=== PATIENT | female | born 1945 | race Caucasian/White ===

== ENCOUNTER 2020-10-16 09:35 | Inpatient (IN) | payer MEDICARE, OTHER ==
[2020-10-16] MEDS ORDERED: MORPHINE 4 MG/1 ML INJ IV ONE (10:15)
[2020-10-16] MEDS ORDERED: ONDANSETRON 4 MG/2 ML INJ IV ONE (10:15)
--- NOTE | 2020-10-16 10:20 | Emergency Department Report ---
HPI - General Chief Complaint: Back Pain/Injury Time Seen by Provider: 10/16/20 10:01 - HPI HPI: This is a 75-year-old female who presents to the emergency department via EMS from home with complaint of low back pain that has been going on over the past 2 weeks and getting progressively worse. The patient was seen in the [facility] emergency department last night and was diagnosed with kidney stones and discharged home on Keflex and Toradol. The patient's pain continued this morning and so the patient came in to the emergency department for further evaluation. She has a past medical history of diabetes and hypertension. The patient's pain is currently 9 out of 10 in intensity and worsens with any type of movement. The patient previously was ambulatory but at this time is unable to bear weight or ambulate secondary to increased pain. The patient also says that the pain will sometimes radiate down towards the hips and legs when she is moving. The pain is worst on the right side of the lower back but sometimes she feels it also in the left lower back. She denies any fever, dysuria, urinary retention, diarrhea, constipation, vaginal bleeding or discharge. She follows with [facility] for primary care. ED Past Medical Hx - Past Medical History Previous Medical History?: Yes Hx Hypertension: Yes Hx Diabetes: Yes - Surgical History Past Surgical History?: Yes - Social History Smoking Status: Former Smoker Substance Use Type: None ED Review of Systems ROS: Stated complaint: RT SIDE FLANK PAIN/KIDNEY STONES Other details as noted in HPI Comment: All other systems reviewed and negative Constitutional: denies: chills, fever Eyes: denies: eye pain, vision change ENT: denies: ear pain, throat pain Respiratory: denies: cough, shortness of breath Cardiovascular: denies: chest pain, palpitations Gastrointestinal: denies: abdominal pain, vomiting Genitourinary: denies: dysuria, discharge Musculoskeletal: back pain, myalgia Skin: denies: rash, lesions Neurological: denies: numbness, paresthesias Physical Exam - Physical Exam Vital Signs: Vital Signs 10/16/20 10/16/20 09:41 09:59 Temperature 97.8 F Pulse Rate 80 Respiratory 18 18 Rate Blood Pressure 184/77 O2 Sat by Pulse 95 95 Oximetry Physical Exam: GENERAL: The patient is well-developed well-nourished. HENT: Normocephalic. Atraumatic. Patient has moist mucous membranes. EYES: Extraocular motions are intact. NECK: Supple. Trachea is midline. CHEST/LUNGS: Clear to auscultation. There is no respiratory distress noted. HEART/CARDIOVASCULAR: Regular. There is no tachycardia. There is no murmur. ABDOMEN: Abdomen is soft, nontender. Patient has normal bowel sounds. There is no abdominal distention. SKIN: Skin is warm and dry. NEURO: The patient is awake, alert, and oriented. The patient is cooperative. The patient has no focal neurologic deficits. Normal speech. MUSCULOSKELETAL: There is no tenderness or deformity. There is no limitation range of motion. BACK: No midline thoracic or lumbar tenderness to palpation. There is some reproducible bilateral lumbar paraspinal tenderness to palpation. ED Course Vital Signs 10/16/20 10/16/20 09:41 09:59 Temperature 97.8 F Pulse Rate 80 Respiratory 18 18 Rate Blood Pressure 184/77 O2 Sat by Pulse 95 95 Oximetry ED Medical Decision Making - Lab Data Result diagrams: 10/16/20 10:21 10/16/20 10:21 Lab Results 10/16/20 10/16/20 10/16/20 Range/Units 09:51 10:21 10:21 WBC 8.6 (4.5-11.0) K/mm3 RBC 4.94 (3.65-5.03) M/mm3 Hgb 15.4 H (10.1-14.3) gm/dl Hct 45.4 H (30.3-42.9) % MCV 92 (79-97) fl MCH 31 (28-32) pg MCHC 34 (30-34) % RDW 12.6 L (13.2-15.2) % Plt Count 327 (140-440) K/mm3 Lymph % (Auto) 17.4 (13.4-35.0) % [place] % (Auto) 3.8 (0.0-7.3) % Eos % (Auto) 0.6 (0.0-4.3) % Baso % (Auto) 0.8 (0.0-1.8) % Lymph # (Auto) 1.5 (1.2-5.4) K/mm3 [place] # (Auto) 0.3 (0.0-0.8) K/mm3 Eos # (Auto) 0.0 (0.0-0.4) K/mm3 Baso # (Auto) 0.1 (0.0-0.1) K/mm3 Seg Neutrophils % 77.4 H (40.0-70.0) % Seg Neutrophils # 6.6 (1.8-7.7) K/mm3 Sodium 137 (137-145) mmol/L Potassium 4.1 (3.6-5.0) mmol/L Chloride 100.6 (98-107) mmol/L Carbon Dioxide 27 (22-30) mmol/L Anion Gap 14 mmol/L BUN 26 H (7-17) mg/dL Creatinine 0.9 (0.6-1.2) mg/dL Estimated GFR > 60 ml/min BUN/Creatinine Ratio 29 % Glucose 267 H (65-100) mg/dL POC Glucose 254 H (70-105) mg/dL Calcium 9.1 (8.4-10.2) mg/dL Total Bilirubin 0.40 (0.1-1.2) mg/dL AST 19 (5-40) units/L ALT 18 (7-56) units/L Alkaline Phosphatase 89 (35-129) units/L Total Protein 7.1 (6.3-8.2) g/dL Albumin 3.7 L (3.9-5) g/dL Albumin/Globulin Ratio 1.1 % Urine Color (Yellow) Urine Turbidity (Clear) Urine pH (5.0-7.0) Ur Specific [place] (1.003-1.030) Urine Protein (Negative) mg/dL Urine Glucose (UA) (Negative) mg/dL Urine Ketones (Negative) mg/dL Urine Blood (Negative) Urine Nitrite (Negative) Urine Bilirubin (Negative) Urine Urobilinogen (<2.0) mg/dL Ur Leukocyte Esterase (Negative) Urine WBC (Auto) (0.0-6.0) /HPF Urine RBC (Auto) (0.0-6.0) /HPF U Epithel Cells (Auto) (0-13.0) /HPF 10/16/20 Range/Units 10:45 WBC (4.5-11.0) K/mm3 RBC (3.65-5.03) M/mm3 Hgb (10.1-14.3) gm/dl Hct (30.3-42.9) % MCV (79-97) fl MCH (28-32) pg MCHC (30-34) % RDW (13.2-15.2) % Plt Count (140-440) K/mm3 Lymph % (Auto) (13.4-35.0) % [place] % (Auto) (0.0-7.3) % Eos % (Auto) (0.0-4.3) % Baso % (Auto) (0.0-1.8) % Lymph # (Auto) (1.2-5.4) K/mm3 [place] # (Auto) (0.0-0.8) K/mm3 Eos # (Auto) (0.0-0.4) K/mm3 Baso # (Auto) (0.0-0.1) K/mm3 Seg Neutrophils % (40.0-70.0) % Seg Neutrophils # (1.8-7.7) K/mm3 Sodium (137-145) mmol/L Potassium (3.6-5.0) mmol/L Chloride (98-107) mmol/L Carbon Dioxide (22-30) mmol/L Anion Gap mmol/L BUN (7-17) mg/dL Creatinine (0.6-1.2) mg/dL Estimated GFR ml/min BUN/Creatinine Ratio % Glucose (65-100) mg/dL POC Glucose (70-105) mg/dL Calcium (8.4-10.2) mg/dL Total Bilirubin (0.1-1.2) mg/dL AST (5-40) units/L ALT (7-56) units/L Alkaline Phosphatase (35-129) units/L Total Protein (6.3-8.2) g/dL Albumin (3.9-5) g/dL Albumin/Globulin Ratio % Urine Color Yellow (Yellow) Urine Turbidity Clear (Clear) Urine pH 7.0 (5.0-7.0) Ur Specific [place] 1.007 (1.003-1.030) Urine Protein 30 mg/dl (Negative) mg/dL Urine Glucose (UA) >=500 (Negative) mg/dL Urine Ketones Neg (Negative) mg/dL Urine Blood Neg (Negative) Urine Nitrite Neg (Negative) Urine Bilirubin Neg (Negative) Urine Urobilinogen < 2.0 (<2.0) mg/dL Ur Leukocyte Esterase Neg (Negative) Urine WBC (Auto) 1.0 (0.0-6.0) /HPF Urine RBC (Auto) < 1.0 (0.0-6.0) /HPF U Epithel Cells (Auto) < 1.0 (0-13.0) /HPF - Radiology Data Radiology results: report reviewed CT ABDOMEN AND PELVIS WITH IV CONTRAST INDICATION: Flank pain for 2 weeks. COMPARISON: None available. TECHNIQUE: All CT scans at this facility use dose modulation, automated exposure control, iterative reconstruction or weight based dosing, when appropriate, to reduce radiation dose to as low as reasonably ac hievable. FINDINGS: Lung Bases: There are atelectatic changes in the dependent lung bases. Skeletal System: No acute abnormality. ABDOMEN: Liver: No significant abnormality. Gallbladder: No significant abnormality. Bile Ducts: No significant abnormality. Pancreas: No significant abnormality. Spleen: No significant abnormality. Adrenals: No significant abnormality. Right Kidney: There are couple punctate cysts. No acute finding. Left Kidney: There is a punctate exophytic upper pole cyst. There are couple nonobstructing calyceal stones. No hydronephrosis or ureteral stone. Upper GI tract: No significant abnormality. Lymph Nodes: No significant adenopathy. Aorta: Advanced atherosclerotic calcification. Additional Findings: No significant abnormality. PELVIS: Colon: No acute abnormality. Urinary Bladder and Distal Ureters: No significant abnormality. Appendix: Not visualized. Lymph Nodes: No significant adenopathy. Additional Findings: There is advanced atherosclerotic calcification at the bilateral iliac arterial trees. IMPRESSION: 1. No acute process in the abdomen or pelvis. 2. Incidental findings, as above. CT LUMBAR SPINE WITHOUT CONTRAST INDICATION: Back pain for 2 weeks. TECHNIQUE: Axial CT images of the spine were obtained. Sagittal and coronal reformatted images were produced. All CT scans at this location are performed using CT dose reduction for ALARA by means of automated exposure control. COMPARISON: None available. FINDINGS: ACUTE FRACTURE(S) OR SUBLUXATION: No acute fracture is seen. There is diffuse height loss at the L4 vertebral body which does not appear acute. SPINAL DEGENERATIVE CHANGES: There is diffuse spondylosis with moderate discogenic degenerative change and moderate to advanced facet arthropathy. Broad-based disc bulges are noted in the mid to lower lumbar spine. PARASPINAL SOFT TISSUES: No soft tissue swelling or other acute abnormalities. ADDITIONAL FINDINGS: There is bilateral spondylolysis at L5 with associated grade 1 anterolisthesis of L5 on S1. IMPRESSION: 1. No acute fracture or subluxation in the spine in neutral position. 2. Spondylitic changes as above. - Medical Decision Making This patient presents to the emergency department with a complaint of a 2-week history of progressively worsening low back pain. Sometimes this pain will radiate down to the hips and buttocks. The pain worsens with any type of movement and it is gotten to the point where the patient has difficulty standing up, bearing weight and ambulating due to the pain. On examination she does not have any midline thoracic or lumbar tenderness to palpation. There is some reproducible lumbar paraspinal tenderness to palpation but overall the patient says that the palpation is not eliciting the same type of pain that she is experiencing. The patient had increased pain when we rolled her to do the back examination. A Briscoe catheter was placed to get a urine specimen because the patient has too much pain in order to use a bedpan or get to the restroom. The catheter was not placed secondary to urinary retention. Labs have been mostly unremarkable including CBC, metabolic panel and urinalysis. There is some hyperglycemia with a blood sugar of about 260, but there is no elevated anion gap and therefore low suspicion for diabetic ketoacidosis. The patient was given 2 different doses of IV analgesia with some transient improvement. CT scan of the abdomen pelvis did not show any acute process. CT scan of the lumbar spine shows some spondylitic changes. There is degenerative disc disease and multiple areas of disc bulging. As the patient is unable to do her ADLs secondary to her continued discomfort, she will be admitted to the hospital for further evaluation and treatment. The patient was accepted for admission by the hospitalist, Dr. Pickens. Critical Care Time: No Critical care attestation.: If time is entered above; I have spent that time in minutes in the direct care of this critically ill patient, excluding procedure time. ED Disposition Clinical Impression: Intractable back pain, Unable to ambulate Hypertension Qualifiers: Hypertension type: essential hypertension Qualified Code(s): I10 - Essential (primary) hypertension Disposition: OP ADMIT IP TO THIS HOSP Is pt being admited?: Yes Condition: Serious Time of Disposition: 12:52
[2020-10-16 10:42] LABS: Basophils # (Auto) 0.1 K/mm3 (0.0-0.1); Basophils % (Auto) 0.8 % (0.0-1.8); Eosinophils % (Auto) 0.6 % (0.0-4.3); Hematocrit 45.4 % (30.3-42.9); Hemoglobin 15.4 gm/dl (10.1-14.3); Lymphocytes # (Auto) 1.5 K/mm3 (1.2-5.4); Lymphocytes % (Auto) 17.4 % (13.4-35.0); Mean Corpuscular HGB Conc 34 % (30-34); Mean Corpuscular Volume 92 fl (79-97); Monocytes # (Auto) 0.3 K/mm3 (0.0-0.8); Monocytes % (Auto) 3.8 % (0.0-7.3); Platelet Count 327 K/mm3 (140-440); Red Blood Count 4.94 M/mm3 (3.65-5.03); Red Cell Distribution Width 12.6 % (13.2-15.2)
[2020-10-16 10:57] LABS: Alanine Aminotransferase 18 units/L (7-56); Albumin 3.7 g/dL (3.9-5); BUN/Creatinine Ratio 29; Blood Urea Nitrogen 26 mg/dL (7-17); Calcium 9.1 mg/dL (8.4-10.2); Hemolysis Index 7
[2020-10-16 11:04] LABS: Bilirubin,Urine NEG (Negative); Blood,Urine NEG (Negative); Color,Urine Yellow (Yellow); RBC,Urine < 1.0 /HPF (0.0-6.0); Urobilinogen,Urine < 2.0 mg/dL (<2.0)
[2020-10-16] MEDS ORDERED: HYDROmorphone 1 MG/1 ML INJ IV ONE (12:28)
--- NOTE | 2020-10-16 12:38 | Cat Scan Report ---
CT LUMBAR SPINE WITHOUT CONTRAST INDICATION: Back pain for 2 weeks. TECHNIQUE: Axial CT images of the spine were obtained. Sagittal and coronal reformatted images were produced. Al l CT scans at this location are performed using CT dose reduction for ALARA by means of automated exp osure control. COMPARISON: None available. FINDINGS: ACUTE FRACTURE(S) OR SUBLUXATION: No acute fracture is seen. There is diffuse height loss at the L4 v ertebral body which does not appear acute. SPINAL DEGENERATIVE CHANGES: There is diffuse spondylosis with moderate discogenic degenerative yung e and moderate to advanced facet arthropathy. Broad-based disc bulges are noted in the mid to lower l umbar spine. PARASPINAL SOFT TISSUES: No soft tissue swelling or other acute abnormalities. ADDITIONAL FINDINGS: There is bilateral spondylolysis at L5 with associated grade 1 anterolisthesis o f L5 on S1. IMPRESSION: 1. No acute fracture or subluxation in the spine in neutral position. 2. Spondylitic changes as above. Signer Name: Nando Elise MD Signed: 10/16/2020 12:34 PM Workstation Name: [id number]
--- NOTE | 2020-10-16 12:42 | Cat Scan Report ---
CT ABDOMEN AND PELVIS WITH IV CONTRAST INDICATION: Flank pain for 2 weeks. COMPARISON: None available. TECHNIQUE: All CT scans at this facility use dose modulation, automated exposure control, iterative reconstructi on or weight based dosing, when appropriate, to reduce radiation dose to as low as reasonably achieva ble. FINDINGS: Lung Bases: There are atelectatic changes in the dependent lung bases. Skeletal System: No acute abnormality. ABDOMEN: Liver: No significant abnormality. Gallbladder: No significant abnormality. Bile Ducts: No significant abnormality. Pancreas: No significant abnormality. Spleen: No significant abnormality. Adrenals: No significant abnormality. Right Kidney: There are couple punctate cysts. No acute finding. Left Kidney: There is a punctate exophytic upper pole cyst. There are couple nonobstructing calyceal stones. No hydronephrosis or ureteral stone. Upper GI tract: No significant abnormality. Lymph Nodes: No significant adenopathy. Aorta: Advanced atherosclerotic calcification. Additional Findings: No significant abnormality. PELVIS: Colon: No acute abnormality. Urinary Bladder and Distal Ureters: No significant abnormality. Appendix: Not visualized. Lymph Nodes: No significant adenopathy. Additional Findings: There is advanced atherosclerotic calcification at the bilateral iliac arterial trees. IMPRESSION: 1. No acute process in the abdomen or pelvis. 2. Incidental findings, as above. Signer Name: Nando Elise MD Signed: 10/16/2020 12:38 PM Workstation Name: [id number]
[2020-10-16] MEDS ORDERED: ONDANSETRON 4 MG/2 ML INJ IV PRN (20:04)
[2020-10-16] MEDS ORDERED: IBUPROFEN 600 MG TAB PO PRN (20:04)
[2020-10-16] MEDS ORDERED: ACETAMINOPHEN 325 MG TAB PO PRN (20:04)
--- NOTE | 2020-10-16 20:20 | History and Physical Report ---
History of Present Illness Date of examination: 10/16/20 Date of admission: 10/16/20 12:55 Chief complaint: Severe low back pain for 1 week History of present illness: 75-year-old female with a history of hypertension and diabetes comes in for severe low back pain radiating to the right lower extremity. Pain is about 10 on a scale of 1-10. Patient went to [place] emergency room last night and was diagnosed with renal colic and discharged Toradol and Keflex. Patient continues to have severe pain which is 10 on a scale of 1-10 sharp in nature. Movement is exacerbating. Lying down flat is relieving. Work-up in the emergency room revealed multiple disc changes spondylolysis and grade 1 and spondylolisthesis and L4 compression fracture. Patient being admitted and the neurosurgery evaluation to be requested. - Past Medical History Previous Medical History?: Yes Hx Hypertension: Yes Hx Diabetes: Yes - Surgical History Past Surgical History?: Yes - Social History Smoking Status: Former Smoker Substance Use Type: None Review of Systems ROS: Stated complaint: RT SIDE FLANK PAIN/KIDNEY STONES Other details as noted in HPI Comment: All other systems reviewed and negative Constitutional: denies: chills, fever Eyes: denies: eye pain, vision change ENT: denies: ear pain, throat pain Respiratory: denies: cough, shortness of breath Cardiovascular: denies: chest pain, palpitations Gastrointestinal: denies: abdominal pain, vomiting Genitourinary: denies: dysuria, discharge Musculoskeletal: back pain, myalgia Skin: denies: rash, lesions Neurological: denies: numbness, paresthesias Medications and Allergies Allergies Allergy/AdvReac Type Severity Reaction Status Date / Time No Known Allergies Allergy Verified 10/16/20 20:11 Home Medications Medication Instructions Recorded Confirmed Last Taken Type AtorvaSTATin [Lipitor] 40 mg PO DAILY 10/17/20 10/17/20 Unknown History Benazepril HCl 40 mg PO DAILY 10/17/20 10/17/20 Unknown History Meloxicam [Mobic] 7.5 mg PO DAILY 10/17/20 10/17/20 Unknown History Metformin HCl [metFORMIN] 1,000 mg PO DAILY 10/17/20 10/17/20 Unknown History amLODIPine 10 mg PO DAILY 10/17/20 10/17/20 Unknown History hydroCHLOROthiazide 25 mg PO DAILY 10/17/20 10/17/20 Unknown History [Hydrochlorothiazide] Active Meds: Active Medications Acetaminophen (Acetaminophen 325 Mg Tab) 650 mg PO Q4H PRN PRN Reason: Pain MILD(1-3)/Fever >100.5/BORJA Famotidine (Famotidine 20 Mg Tab) 20 mg PO BID MARION Hydromorphone HCl (Hydromorphone 1 Mg/1 Ml Inj) 0.5 mg IV Q3H PRN PRN Reason: Pain , Severe (7-10) Sodium Chloride (Nacl 0.9% 1000 Ml) 1,000 mls @ 75 mls/hr IV DIRECT MARION Ibuprofen (Ibuprofen 600 Mg Tab) 600 mg PO Q6H PRN PRN Reason: Pain, Mild (1-3) Ondansetron HCl (Ondansetron 4 Mg/2 Ml Inj) 4 mg IV Q3H PRN PRN Reason: Nausea And Vomiting Oxycodone/Acetaminophen (Oxycodone /Acetaminophen 5-325mg Tab) 1 tab PO Q6H PRN PRN Reason: Pain, Moderate (4-6) Sodium Chloride (Sodium Chloride 0.9% 10 Ml Flush Syringe) 10 ml IV BID MARION Sodium Chloride (Sodium Chloride 0.9% 10 Ml Flush Syringe) 10 ml IV PRN PRN PRN Reason: LINE FLUSH Exam - Constitutional Vitals: Temp Pulse Resp BP Pulse Ox 97.9 F 104 H 18 150/68 93 10/16/20 14:36 10/16/20 14:36 10/16/20 14:36 10/16/20 14:36 10/16/20 14:36 General appearance: Present: no acute distress, well-nourished - EENT Eyes: Present: PERRL ENT: hearing intact, clear oral mucosa - Neck Neck: Present: supple, normal ROM - Respiratory Respiratory effort: normal Respiratory: bilateral: CTA - Cardiovascular Heart rate: 78 Rhythm: regular Heart Sounds: Present: S1 & S2. Absent: rub, click - Extremities Extremities: pulses symmetrical, No edema Peripheral Pulses: within normal limits - Abdominal General gastrointestinal: Present: soft, non-tender, non-distended, normal bowel sounds Female genitourinary: Present: normal - Integumentary Integumentary: Present: clear, warm, dry - Musculoskeletal Musculoskeletal: gait normal, strength equal bilaterally - Psychiatric Psychiatric: appropriate mood/affect, intact judgment & insight - Neurologic Neurologic: CNII-XII intact, moves all extremities HEART Score - HEART Score History: Slightly suspicious Age: > 65 Risk factors: 1-2 risk factors Troponin: < normal limit - Critical Actions Critical Actions: 0-3 pts:0.9-1.7%risk of adverse cardiac event.Candidate for discharge Results - Labs CBC & Chem 7: 10/16/20 10:21 10/16/20 10:21 Labs: Laboratory Last Values WBC 8.6 K/mm3 (4.5-11.0) 10/16/20 10:21 RBC 4.94 M/mm3 (3.65-5.03) 10/16/20 10:21 Hgb 15.4 gm/dl (10.1-14.3) H 10/16/20 10:21 Hct 45.4 % (30.3-42.9) H 10/16/20 10:21 MCV 92 fl (79-97) 10/16/20 10:21 MCH 31 pg (28-32) 10/16/20 10:21 MCHC 34 % (30-34) 10/16/20 10:21 RDW 12.6 % (13.2-15.2) L 10/16/20 10:21 Plt Count 327 K/mm3 (140-440) 10/16/20 10:21 Lymph % (Auto) 17.4 % (13.4-35.0) 10/16/20 10:21 [place] % (Auto) 3.8 % (0.0-7.3) 10/16/20 10:21 Eos % (Auto) 0.6 % (0.0-4.3) 10/16/20 10:21 Baso % (Auto) 0.8 % (0.0-1.8) 10/16/20 10:21 Lymph # (Auto) 1.5 K/mm3 (1.2-5.4) 10/16/20 10:21 [place] # (Auto) 0.3 K/mm3 (0.0-0.8) 10/16/20 10:21 Eos # (Auto) 0.0 K/mm3 (0.0-0.4) 10/16/20 10:21 Baso # (Auto) 0.1 K/mm3 (0.0-0.1) 10/16/20 10:21 Seg Neutrophils % 77.4 % (40.0-70.0) H 10/16/20 10:21 Seg Neutrophils # 6.6 K/mm3 (1.8-7.7) 10/16/20 10:21 Sodium 137 mmol/L (137-145) 10/16/20 10:21 Potassium 4.1 mmol/L (3.6-5.0) 10/16/20 10:21 Chloride 100.6 mmol/L (98-107) 10/16/20 10:21 Carbon Dioxide 27 mmol/L (22-30) 10/16/20 10:21 Anion Gap 14 mmol/L 10/16/20 10:21 BUN 26 mg/dL (7-17) H 10/16/20 10:21 Creatinine 0.9 mg/dL (0.6-1.2) 10/16/20 10:21 Estimated GFR > 60 ml/min 10/16/20 10:21 BUN/Creatinine Ratio 29 % 10/16/20 10:21 Glucose 267 mg/dL (65-100) H 10/16/20 10:21 POC Glucose 254 mg/dL (70-105) H 10/16/20 09:51 Calcium 9.1 mg/dL (8.4-10.2) 10/16/20 10:21 Total Bilirubin 0.40 mg/dL (0.1-1.2) 10/16/20 10:21 AST 19 units/L (5-40) 10/16/20 10:21 ALT 18 units/L (7-56) 10/16/20 10:21 Alkaline Phosphatase 89 units/L (35-129) 10/16/20 10:21 Total Protein 7.1 g/dL (6.3-8.2) 10/16/20 10:21 Albumin 3.7 g/dL (3.9-5) L 10/16/20 10:21 Albumin/Globulin Ratio 1.1 % 10/16/20 10:21 Urine Color Yellow (Yellow) 10/16/20 10:45 Urine Turbidity Clear (Clear) 10/16/20 10:45 Urine pH 7.0 (5.0-7.0) 10/16/20 10:45 Ur Specific [place] 1.007 (1.003-1.030) 10/16/20 10:45 Urine Protein 30 mg/dl mg/dL (Negative) 10/16/20 10:45 Urine Glucose (UA) >=500 mg/dL (Negative) 10/16/20 10:45 Urine Ketones Neg mg/dL (Negative) 10/16/20 10:45 Urine Blood Neg (Negative) 10/16/20 10:45 Urine Nitrite Neg (Negative) 10/16/20 10:45 Urine Bilirubin Neg (Negative) 10/16/20 10:45 Urine Urobilinogen < 2.0 mg/dL (<2.0) 10/16/20 10:45 Ur Leukocyte Esterase Neg (Negative) 10/16/20 10:45 Urine WBC (Auto) 1.0 /HPF (0.0-6.0) 10/16/20 10:45 Urine RBC (Auto) < 1.0 /HPF (0.0-6.0) 10/16/20 10:45 U Epithel Cells (Auto) < 1.0 /HPF (0-13.0) 10/16/20 10:45 - Imaging and Cardiology CT scan - abdomen: report reviewed Imaging and Cardiology: Abdominal CAT scan IMPRESSION: 1. No acute process in the abdomen or pelvis. 2. Incidental findings, as above. L-spine CT FINDINGS: ACUTE FRACTURE(S) OR SUBLUXATION: No acute fracture is seen. Assessment and Plan Advance Directives: Yes (Full code) Plan of care discussed with patient/family: Yes - Patient Problems (1) Lumbar radiculopathy, acute Current Visit: Yes Status: Acute Plan to address problem: Pain management for now Neurosurgery consult requested May need lumbar fusion as outpatient and readmission (2) Hypertension Current Visit: Yes Status: Chronic Qualifiers: Hypertension type: essential hypertension Qualified Code(s): I10 - Essential (primary) hypertension Plan to address problem: Continue antihypertensives and adjust medications (3) T2DM (type 2 diabetes mellitus) Current Visit: Yes Status: Chronic Qualifiers: Diabetes mellitus intermission coordinator insulin use: unspecified intermediate insulin use status Plan to address problem: Check hemoglobin A1c Continue coverage (4) DVT prophylaxis Current Visit: Yes Status: Acute Plan to address problem: On heparin and GI prophylaxis
[2020-10-16] MEDS: HYDROmorphone 1 MG/1 ML INJ IV PRN (21:10)
[2020-10-16] MEDS: SODIUM CHLORIDE 0.9% 1000 ML 1,000 ML IV SCH (21:14)
[2020-10-16] MEDS: FAMOTIDINE 20 MG TAB PO SCH (21:27)
[2020-10-16] MEDS: hydrALAZINE 20 MG/1 ML INJ IV PRN (22:07)
[2020-10-17] MEDS: SODIUM CHLORIDE 0.9% 1000 ML 1,000 ML IV SCH (00:47)
[2020-10-17] MEDS: hydrALAZINE 20 MG/1 ML INJ IV PRN (04:41)
[2020-10-17] MEDS: HEPARIN 5,000 UNIT/1 ML VIAL SUB-Q SCH ×2 (09:48→22:43)
[2020-10-17] MEDS: FAMOTIDINE 20 MG TAB PO SCH ×2 (09:48→22:43)
--- NOTE | 2020-10-17 10:38 | Progress Note ---
Assessment and Plan Assessment and plan: -- Lumbar radiculopathy, acute Current Visit: Yes Status: Acute Plan to address problem: Pain management, supportive care CT lumbar spine; no acute subluxation or fracture Spondylitic changes, Supportive care MRI L-spine requested, follow the report Follow neurosurgery evaluation recommendations Physical therapy occupational therapy Rehabilitation as needed -- Hypertension Current Visit: Yes Status: Chronic Plan to address problem: Continue current antihypertensives As needed hydralazine, pain medications -- T2DM (type 2 diabetes mellitus) Current Visit: Yes Status: Chronic Plan to address problem: Accu-Chek sliding scale coverage ADA diet Insulin as needed -- DVT prophylaxis Current Visit: Yes Status: Acute Plan to address problem: On heparin and GI prophylaxis We will closely monitor the patient and adjust the management as needed Plan of care reviewed with patient and her nurse 10/17/2020; follow MRI report, follow neurosurgery evaluation and recommendations PT OT rehabilitation, discharge when medically stable History Interval history: I have seen and examined the patient at the bedside this morning Patient's chart and medications reviewed Patient was admitted with back pain of 1 week duration Hospitalist Physical - Constitutional Vitals: Temp Pulse Resp BP Pulse Ox 98.5 F 114 H 18 157/72 94 10/17/20 07:59 10/17/20 07:59 10/17/20 07:59 10/17/20 07:59 10/17/20 07:59 General appearance: Present: mild distress (Due to pain), well-nourished - EENT Eyes: Present: PERRL - Neck Neck: Present: supple, normal ROM - Respiratory Respiratory effort: normal Respiratory: bilateral: diminished, rhonchi, negative: rales, wheezing - Cardiovascular Rhythm: regular Heart Sounds: Present: S1 & S2 - Extremities Extremities: no ischemia, No edema - Abdominal General gastrointestinal: soft, non-tender, non-distended, normal bowel sounds - Integumentary Integumentary: Present: clear, warm - Psychiatric Psychiatric: appropriate mood/affect, cooperative - Neurologic Neurologic: CNII-XII intact, moves all extremities HEART Score - HEART Score Age: > 65 Risk factors: 1-2 risk factors Troponin: < normal limit - Critical Actions Critical Actions: 0-3 pts:0.9-1.7%risk of adverse cardiac event.Candidate for yamilet lewis Results - Labs CBC & Chem 7: 10/16/20 10:21 10/16/20 10:21 Labs: Laboratory Last Values WBC 8.6 K/mm3 (4.5-11.0) 10/16/20 10:21 RBC 4.94 M/mm3 (3.65-5.03) 10/16/20 10:21 Hgb 15.4 gm/dl (10.1-14.3) H 10/16/20 10:21 Hct 45.4 % (30.3-42.9) H 10/16/20 10:21 MCV 92 fl (79-97) 10/16/20 10:21 MCH 31 pg (28-32) 10/16/20 10:21 MCHC 34 % (30-34) 10/16/20 10:21 RDW 12.6 % (13.2-15.2) L 10/16/20 10:21 Plt Count 327 K/mm3 (140-440) 10/16/20 10:21 Lymph % (Auto) 17.4 % (13.4-35.0) 10/16/20 10:21 [place] % (Auto) 3.8 % (0.0-7.3) 10/16/20 10:21 Eos % (Auto) 0.6 % (0.0-4.3) 10/16/20 10:21 Baso % (Auto) 0.8 % (0.0-1.8) 10/16/20 10:21 Lymph # (Auto) 1.5 K/mm3 (1.2-5.4) 10/16/20 10:21 [place] # (Auto) 0.3 K/mm3 (0.0-0.8) 10/16/20 10:21 Eos # (Auto) 0.0 K/mm3 (0.0-0.4) 10/16/20 10:21 Baso # (Auto) 0.1 K/mm3 (0.0-0.1) 10/16/20 10:21 Seg Neutrophils % 77.4 % (40.0-70.0) H 10/16/20 10:21 Seg Neutrophils # 6.6 K/mm3 (1.8-7.7) 10/16/20 10:21 Sodium 137 mmol/L (137-145) 10/16/20 10:21 Potassium 4.1 mmol/L (3.6-5.0) 10/16/20 10:21 Chloride 100.6 mmol/L (98-107) 10/16/20 10:21 Carbon Dioxide 27 mmol/L (22-30) 10/16/20 10:21 Anion Gap 14 mmol/L 10/16/20 10:21 BUN 26 mg/dL (7-17) H 10/16/20 10:21 Creatinine 0.9 mg/dL (0.6-1.2) 10/16/20 10:21 Estimated GFR > 60 ml/min 10/16/20 10:21 BUN/Creatinine Ratio 29 % 10/16/20 10:21 Glucose 267 mg/dL (65-100) H 10/16/20 10:21 POC Glucose 297 mg/dL (70-105) H 10/17/20 08:38 Calcium 9.1 mg/dL (8.4-10.2) 10/16/20 10:21 Total Bilirubin 0.40 mg/dL (0.1-1.2) 10/16/20 10:21 AST 19 units/L (5-40) 10/16/20 10:21 ALT 18 units/L (7-56) 10/16/20 10:21 Alkaline Phosphatase 89 units/L (35-129) 10/16/20 10:21 Total Protein 7.1 g/dL (6.3-8.2) 10/16/20 10:21 Albumin 3.7 g/dL (3.9-5) L 10/16/20 10:21 Albumin/Globulin Ratio 1.1 % 10/16/20 10:21 Urine Color Yellow (Yellow) 10/16/20 10:45 Urine Turbidity Clear (Clear) 10/16/20 10:45 Urine pH 7.0 (5.0-7.0) 10/16/20 10:45 Ur Specific [place] 1.007 (1.003-1.030) 10/16/20 10:45 Urine Protein 30 mg/dl mg/dL (Negative) 10/16/20 10:45 Urine Glucose (UA) >=500 mg/dL (Negative) 10/16/20 10:45 Urine Ketones Neg mg/dL (Negative) 10/16/20 10:45 Urine Blood Neg (Negative) 10/16/20 10:45 Urine Nitrite Neg (Negative) 10/16/20 10:45 Urine Bilirubin Neg (Negative) 10/16/20 10:45 Urine Urobilinogen < 2.0 mg/dL (<2.0) 10/16/20 10:45 Ur Leukocyte Esterase Neg (Negative) 10/16/20 10:45 Urine WBC (Auto) 1.0 /HPF (0.0-6.0) 10/16/20 10:45 Urine RBC (Auto) < 1.0 /HPF (0.0-6.0) 10/16/20 10:45 U Epithel Cells (Auto) < 1.0 /HPF (0-13.0) 10/16/20 10:45 [place]/IV: Voiding Method External Female Catheter Active Medications - Current Medications Current Medications: Generic Name Dose Route Start Last Admin Trade Name Freq PRN Reason Stop Dose Admin Acetaminophen 650 mg 10/16/20 20:04 Acetaminophen 325 Mg Tab PO Q4H PRN Pain MILD(1-3)/Fever >100.5/BORJA Famotidine 20 mg 10/16/20 22:00 10/17/20 09:48 Famotidine 20 Mg Tab PO 20 mg BID [facility] Administration Heparin Sodium (Porcine) 5,000 unit 10/17/20 10:00 10/17/20 09:48 Heparin 5,000 Unit/1 Ml Vial SUB-Q 5,000 unit Q12HR [facility] Administration Hydralazine HCl 10 mg 10/16/20 21:44 10/17/20 04:41 Hydralazine 20 Mg/1 Ml Inj IV 10 mg Q6HR PRN Administration SBP above 160, DBP above 90 Hydromorphone HCl 0.5 mg 10/16/20 20:04 10/16/20 21:10 Hydromorphone 1 Mg/1 Ml Inj IV 0.5 mg Q3H PRN Administration Pain , Severe (7-10) Sodium Chloride 1,000 mls @ 75 mls/hr 10/16/20 20:15 10/17/20 00:47 Nacl 0.9% 1000 Ml IV 75 mls/hr DIRECT [facility] Administration Ibuprofen 600 mg 10/16/20 20:04 Ibuprofen 600 Mg Tab PO Q6H PRN Pain, Mild (1-3) Ondansetron HCl 4 mg 10/16/20 20:04 Ondansetron 4 Mg/2 Ml Inj IV Q3H PRN Nausea And Vomiting Oxycodone/Acetaminophen 1 tab 10/16/20 20:04 Oxycodone /Acetaminophen 5-325mg Tab PO Q6H PRN Pain, Moderate (4-6) Sodium Chloride 10 ml 10/16/20 22:00 10/16/20 21:27 Sodium Chloride 0.9% 10 Ml Flush Syringe IV 10 ml BID [facility] Administration Sodium Chloride 10 ml 10/16/20 20:04 Sodium Chloride 0.9% 10 Ml Flush Syringe IV PRN PRN LINE FLUSH
[2020-10-17] MEDS: HYDROmorphone 1 MG/1 ML INJ IV PRN ×3 (10:50→22:43)
[2020-10-17] MEDS: oxyCODONE /ACETAMINOPHEN 5-325MG TAB PO PRN (14:42)
--- NOTE | 2020-10-17 17:44 | Magnetic Resonance Report ---
MR lumbar spine wo/w con INDICATION / CLINICAL INFORMATION: 75 years Female; Lumbar radiculopathy. TECHNIQUE: Multisequence, multiplanar images of the lumbar spine were obtained. COMPARISON: 10/16/2020-CT FINDINGS: ALIGNMENT: There is grade 1 anterolisthesis of L5 with respect to S1, related to bilateral spondyloly sis at L5. Levoscoliosis seen with apex at approximately L3-4 VERTEBRAE:There is loss of height at L4. When compared with recent CT, vertically and horizontally or iented fractures are seen in the vertebral body, suggesting acute/subacute injury. Mild edematous endplate changes are seen rightward of midline at L3-4, as well, which are reactive fr om disc degeneration. VISUALIZED SPINAL CORD: No significant abnormality. Small lipoma seen along the filum terminalis. INTERVERTEBRAL DISCS: Multilevel disc desiccation noted. [id number] ANALYSIS: L1-2: Minimal disc bulge and facet hypertrophy. Very small left lateral recess disc protrusion. No si gnificant sequela. L2-3: Mild disc bulge and facet hypertrophy. Mild to moderate foraminal narrowing on the right and mi ld on the left. No significant sequela. Mild canal narrowing. L3-4: Mild to moderate disc bulge. Moderate facet and borderline ligamentum flavum hypertrophy. Mild to moderate canal narrowing. Moderate to marked foraminal narrowing on the right and moderate on the left. There is encroachment upon and flattening of the right L3 nerve. Similar findings are seen on p rior and are most likely on a chronic basis. Descending nerve roots could be affected in the lateral recess regions. L4-5: Mild disc bulge and facet hypertrophy. Moderate to marked foraminal narrowing on the right from disc disease and facet hypertrophy with encroachment upon and mild flattening of the exiting right L 4 nerve. Similar findings seen on prior. Fairly significant foraminal narrowing seen on the left as w ell. L5-S1: As above. Bilateral facet hypertrophy. Moderate foraminal narrowing seen on the right and mild -to-moderate on the left. There is encroachment upon and mild flattening of the right L5 nerve which appears be on a chronic basis. PARASPINAL SOFT TISSUES: There is a synovial cyst projects posteriorly from the L4-5 facet joint daily on, which should be of no clinical significance. ADDITIONAL FINDINGS: None. IMPRESSION: 1. Acute/subacute injury suggested at L4, as described above. 2. Multilevel degenerative changes identified. Most marked findings may be at L3-4 and L4-5. 3. Spondylolysis with spondylolisthesis suggested at L5-S1. Signer Name: Davon Dawkins MD, III Signed: 10/17/2020 5:39 PM Workstation Name: [id number]
[2020-10-17] MEDS: CAPSAICIN 0.075% CREAM 60 GM TP SCH (22:42)
[2020-10-17] MEDS: INSULIN LISPRO 100 UNIT/ML SUB-Q SCH (22:45)
[2020-10-18] MEDS: HYDROmorphone 1 MG/1 ML INJ IV PRN ×2 (01:48→19:41)
[2020-10-18] MEDS: CAPSAICIN 0.075% CREAM 60 GM TP SCH ×3 (09:55→19:43)
[2020-10-18] MEDS: HEPARIN 5,000 UNIT/1 ML VIAL SUB-Q SCH ×2 (09:57→21:00)
[2020-10-18] MEDS: hydroCHLOROthiazide 25 MG TAB PO SCH (09:58)
[2020-10-18] MEDS: LISINOPRIL 40 MG TAB PO SCH (09:58)
[2020-10-18] MEDS: FAMOTIDINE 20 MG TAB PO SCH ×2 (09:58→21:00)
[2020-10-18] MEDS: amLODIPine 10 MG TAB PO SCH (09:58)
[2020-10-18] MEDS: INSULIN LISPRO 100 UNIT/ML SUB-Q SCH ×4 (09:59→21:01)
[2020-10-18] MEDS ORDERED: NON-FORMULARY EACH (Hydrochlorothiazide [Hydrochlorothiazide] 50 MG Tablet) PO SCH (10:00)
[2020-10-18] MEDS ORDERED: BENAZEPRIL HCL 40 MG PO SCH (10:00)
[2020-10-18] MEDS: INSULIN NPH/REGULAR 70/30 INJ SUB-Q SCH ×2 (10:02→16:55)
[2020-10-18] MEDS: oxyCODONE /ACETAMINOPHEN 5-325MG TAB PO PRN (13:03)
--- NOTE | 2020-10-18 17:44 | Progress Note ---
Assessment and Plan - Patient Problems (1) Lumbar radiculopathy, acute Current Visit: Yes Status: Acute Plan to address problem: Pain management for now Neurosurgery consult requested May need lumbar fusion as outpatient and readmission Pain is improved to some extent (2) Hypertension Current Visit: Yes Status: Chronic Qualifiers: Hypertension type: essential hypertension Qualified Code(s): I10 - Essential (primary) hypertension Plan to address problem: Continue antihypertensives and adjust medications (3) T2DM (type 2 diabetes mellitus) Current Visit: Yes Status: Chronic Qualifiers: Diabetes mellitus manager intermediate insulin use: unspecified snf insulin use status Plan to address problem: Hemoglobin A1c is high Continue coverage Patient may need to be discharged on insulin (4) DVT prophylaxis Current Visit: Yes Status: Acute Plan to address problem: On heparin and GI prophylaxis Subjective Date of service: 10/18/20 Principal diagnosis: Lumbar radiculopathy, L4 fracture Interval history: 75-year-old female with a history of hypertension and diabetes comes in for severe low back pain radiating to the right lower extremity. Pain is about 10 on a scale of 1-10. Patient went to [place] emergency room last night and was diagnosed with renal colic and discharged Toradol and Keflex. Patient continues to have severe pain which is 10 on a scale of 1-10 sharp in nature. Movement is exacerbating. Lying down flat is relieving. Work-up in the emergency room revealed multiple disc changes spondylolysis and grade 1 and spondylolisthesis and L4 compression fracture. Pain is better Neurosurgery evaluation pending Objective - Constitutional Vitals: Vital Signs - 12hr 10/18/20 10/18/20 10/18/20 07:28 09:58 11:16 Temperature 98.5 F 98.4 F Pulse Rate 100 H 100 H 86 Respiratory 18 16 Rate Blood Pressure 179/66 179/66 140/72 O2 Sat by Pulse 95 97 Oximetry 10/18/20 15:23 Temperature 98.4 F Pulse Rate 84 Respiratory 18 Rate Blood Pressure 147/76 O2 Sat by Pulse 93 Oximetry General appearance: Present: no acute distress, well-nourished - EENT Eyes: PERRL, EOM intact ENT: hearing intact, clear oral mucosa Ears: bilateral: normal - Neck Neck: supple, normal ROM - Respiratory Respiratory effort: normal Respiratory: bilateral: CTA - Breasts Breasts: normal - Cardiovascular Heart rate: 78 Rhythm: regular Heart Sounds: Present: S1 & S2. Absent: gallop, rub Extremities: pulses intact, No edema, normal color, Full ROM - Gastrointestinal General gastrointestinal: Present: soft, non-tender, non-distended, normal bowel sounds - Genitourinary Female genitourinary: normal - Integumentary Integumentary: clear, warm, dry - Musculoskeletal Musculoskeletal: 1, strength equal bilaterally - Neurologic Neurologic: moves all extremities - Psychiatric Psychiatric: memory intact, appropriate mood/affect, intact judgment & insight - Allied health notes Allied health notes reviewed: nursing, case management - Labs CBC & Chem 7: 10/16/20 10:21 10/16/20 10:21 Labs: Abnormal lab results 10/17/20 10/18/20 10/18/20 Range/Units 20:53 07:18 11:15 POC Glucose 155 H 165 H 218 H (70-105) mg/dL MRI LS spine L1-2: Minimal disc bulge and facet hypertrophy. Very small left lateral recess disc protrusion. No significant sequela. L2-3: Mild disc bulge and facet hypertrophy. Mild to moderate foraminal narrowing on the right and mild on the left. No significant sequela. Mild canal narrowing. L3-4: Mild to moderate disc bulge. Moderate facet and borderline ligamentum flavum hypertrophy. Mild to mode rate canal narrowing. Moderate to marked foraminal narrowing on the right and moderate on the left. There is encroachment upon and flattening of the right L3 nerve. Similar findings are seen on prior and are most likely on a chronic basis. Descending nerve roots could be affected in the lateral recess regions. L4-5: Mild disc bulge and facet hypertrophy. Moderate to marked foraminal narrowing on the right from disc disease and facet hypertrophy with encroachment upon and mild flattening of the exiting right L4 nerve. Similar findings seen on prior. Fairly significant foraminal narrowing seen on the left as well. L5-S1: As above. Bilateral facet hypertrophy. Moderate foraminal narrowing seen on the right and [id number] on the left. There is encroachment upon and mild flattening of the right L5 nerve which appears be on a chronic basis. PARASPINAL SOFT TISSUES: There is a synovial cyst projects posteriorly from the L4-5 facet joint region, which should be of no clinical significance. ADDITIONAL FINDINGS: None. IMPRESSION: 1. Acute/subacute injury suggested at L4, as described above. 2. Multilevel degenerative changes identified. Most marked findings may be at L3-4 and L4-5. 3. Spondylolysis with spondylolisthesis suggested at L5-S1. Signer Name: Davon Dawkins MD, III Signed: 10/17/2020 5:39 PM Workstation Name: [id number] HEART Score - HEART Score Age: > 65 Risk factors: 1-2 risk factors Troponin: < normal limit - Critical Actions Critical Actions: 0-3 pts:0.9-1.7%risk of adverse cardiac event.Candidate for discharge
[2020-10-18] MEDS: SODIUM CHLORIDE 0.9% 1000 ML 1,000 ML IV SCH (19:43)
[2020-10-19] MEDS: CAPSAICIN 0.075% CREAM 60 GM TP SCH ×3 (07:36→23:15)
[2020-10-19] MEDS: INSULIN LISPRO 100 UNIT/ML SUB-Q SCH ×4 (07:47→23:16)
[2020-10-19] MEDS: INSULIN NPH/REGULAR 70/30 INJ SUB-Q SCH ×2 (09:29→18:23)
[2020-10-19] MEDS: amLODIPine 10 MG TAB PO SCH (11:27)
[2020-10-19] MEDS: LISINOPRIL 40 MG TAB PO SCH (11:27)
[2020-10-19] MEDS: hydroCHLOROthiazide 25 MG TAB PO SCH (11:27)
[2020-10-19] MEDS: FAMOTIDINE 20 MG TAB PO SCH ×2 (11:28→22:25)
[2020-10-19] MEDS: HEPARIN 5,000 UNIT/1 ML VIAL SUB-Q SCH ×2 (11:28→22:28)
[2020-10-19] MEDS: oxyCODONE /ACETAMINOPHEN 5-325MG TAB PO PRN ×2 (12:26→19:45)
--- NOTE | 2020-10-19 13:06 | Consultation ---
History of Present Illness Consult date: 10/19/20 Reason for Consult: Back pain Chief complaint: Left sided back pain History of present illness: Laura Carter is a 75 y/o F that presented to [facility] a few days prior with acute onset back pain that initially developed 2 weeks ago. She initially presented to [facility], diagnosed with renal colic. She was prescribed oral abx and discharged. She was admitted for further imaging and evaluation. MRI L spine revealed edema involving the L4 superior endplate, some T2 hyperintensity within the disc space. There are other chronic degenerative changes noted as well. Presently, she reports severe pain and intolerance to axial loading. She denies pain radiating down her legs, numbness or tingling. He is receiving IV dilaudid but is still in pain. She lives with her daughter and grandchildren. Medications and Allergies Allergies Allergy/AdvReac Type Severity Reaction Status Date / Time No Known Allergies Allergy Verified 10/16/20 20:11 Home Medications Medication Instructions Recorded Confirmed Last Taken Type AtorvaSTATin [Lipitor] 40 mg PO DAILY 10/17/20 10/17/20 Unknown History Benazepril HCl 40 mg PO DAILY 10/17/20 10/17/20 Unknown History Meloxicam [Mobic] 7.5 mg PO DAILY 10/17/20 10/17/20 Unknown History Metformin HCl [metFORMIN] 1,000 mg PO DAILY 10/17/20 10/17/20 Unknown History amLODIPine 10 mg PO DAILY 10/17/20 10/17/20 Unknown History hydroCHLOROthiazide 25 mg PO DAILY 10/17/20 10/17/20 Unknown History [Hydrochlorothiazide] Active Meds: Active Medications Acetaminophen (Acetaminophen 325 Mg Tab) 650 mg PO Q4H PRN PRN Reason: Pain MILD(1-3)/Fever >100.5/BORJA Amlodipine Besylate (Amlodipine 10 Mg Tab) 10 mg PO DAILY [facility] Last Admin: 10/19/20 11:27 Dose: 10 mg Documented by: Atorvastatin Calcium (Atorvastatin 40 Mg Tab) 40 mg PO QHS [facility] Last Admin: 10/18/20 21:00 Dose: 40 mg Documented by: Capsaicin (Capsaicin 0.075% Cream 60 Gm) 1 applic TP TID [facility] Last Admin: 10/19/20 07:36 Dose: 1 applic Documented by: Famotidine (Famotidine 20 Mg Tab) 20 mg PO BID [facility] Last Admin: 10/19/20 11:28 Dose: 20 mg Documented by: Heparin Sodium (Porcine) (Heparin 5,000 Unit/1 Ml Vial) 5,000 unit SUB-Q Q12HR [facility] Last Admin: 10/19/20 11:28 Dose: 5,000 unit Documented by: Hydralazine HCl (Hydralazine 20 Mg/1 Ml Inj) 10 mg IV Q6HR PRN PRN Reason: SBP above 160, DBP above 90 Last Admin: 10/17/20 04:41 Dose: 10 mg Documented by: Hydrochlorothiazide (Hydrochlorothiazide 25 Mg Tab) 25 mg PO QDAY [facility] Last Admin: 10/19/20 11:27 Dose: 25 mg Documented by: Hydromorphone HCl (Hydromorphone 1 Mg/1 Ml Inj) 0.5 mg IV Q3H PRN PRN Reason: Pain , Severe (7-10) Last Admin: 10/18/20 19:41 Dose: 0.5 mg Documented by: Sodium Chloride (Nacl 0.9% 1000 Ml) 1,000 mls @ 75 mls/hr IV DIRECT [facility] Last Admin: 10/18/20 19:43 Dose: 75 mls/hr Documented by: Ibuprofen (Ibuprofen 600 Mg Tab) 600 mg PO Q6H PRN PRN Reason: Pain, Mild (1-3) Insulin Human Isoph/Insulin Regular (Insulin Nph/Regular 70/30 Inj) 4 unit SUB- Q BIDDIAB [facility] Last Admin: 10/19/20 09:29 Dose: 4 unit Documented by: Insulin Human Lispro (Insulin Lispro 100 Unit/Ml) 0 unit SUB-Q [facility]; Protocol Last Admin: 10/18/20 21:01 Dose: 2 unit Documented by: Lisinopril (Lisinopril 40 Mg Tab) 40 mg PO QDAY [facility] Last Admin: 10/19/20 11:27 Dose: 40 mg Documented by: Ondansetron HCl (Ondansetron 4 Mg/2 Ml Inj) 4 mg IV Q3H PRN PRN Reason: Nausea And Vomiting Oxycodone/Acetaminophen (Oxycodone /Acetaminophen 5-325mg Tab) 1 tab PO Q6H PRN PRN Reason: Pain, Moderate (4-6) Last Admin: 10/19/20 12:26 Dose: 1 tab Documented by: Sodium Chloride (Sodium Chloride 0.9% 10 Ml Flush Syringe) 10 ml IV BID [facility] Last Admin: 10/19/20 12:36 Dose: 10 ml Documented by: Sodium Chloride (Sodium Chloride 0.9% 10 Ml Flush Syringe) 10 ml IV PRN PRN PRN Reason: LINE FLUSH Review of Systems All systems: negative (what is stated in HPI) Physical Examination - Vital Signs Vital Signs: Vital Signs Temp Pulse Resp BP Pulse Ox 97.8 F 80 18 184/77 95 10/16/20 09:41 10/16/20 09:41 10/16/20 09:41 10/16/20 09:41 10/16/20 09:41 - Physical Exam Narrative exam: seen and examined no acute distress NC/AT RRR breathing non-labored abdomen soft no cyanosis or clubbing A&Ox3 CNII-XII intact MAEW, no focal deficit +tenderness to palpation of lower lumbar spine and left lip SLR (-) sensation intact to light touch reflexes +2 Results - Laboratory Findings CBC and BMP: 10/16/20 10:21 10/16/20 10:21 Abnormal Lab Findings: Abnormal Labs 10/16/20 10/16/20 10/16/20 09:51 10:21 10:21 Hgb 15.4 H Hct 45.4 H RDW 12.6 L Seg Neutrophils % 77.4 H BUN 26 H Glucose 267 H POC Glucose 254 H Albumin 3.7 L 10/16/20 10/17/20 10/17/20 21:21 08:38 11:31 Hgb Hct RDW Seg Neutrophils % BUN Glucose POC Glucose 208 H 297 H 160 H Albumin 10/17/20 10/17/20 10/18/20 16:48 20:53 07:18 Hgb Hct RDW Seg Neutrophils % BUN Glucose POC Glucose 210 H 155 H 165 H Albumin 10/18/20 10/18/20 10/18/20 11:15 15:59 20:51 Hgb Hct RDW Seg Neutrophils % BUN Glucose POC Glucose 218 H 128 H 191 H Albumin 10/19/20 07:51 Hgb Hct RDW Seg Neutrophils % BUN Glucose POC Glucose 199 H Albumin Assessment and Plan 75 y/o Female w/ subacute compression deformity at L4 -will provide LSO brace - I have contacted Bola Soares with [employer] -please obtain left hip xray -bedrest for now, oob with brace -please prescribe oral medrol dose jhoana -may discharge once brace is available -will arrange for outpatient follow up -please notify if questions
--- NOTE | 2020-10-19 19:20 | Progress Note ---
Assessment and Plan - Patient Problems (1) Lumbar radiculopathy, acute Current Visit: Yes Status: Acute Plan to address problem: Pain management for now Neurosurgery consult appreciated Lumbar support ordered Surgery as outpatient for the L4 fracture and CVS spondylosis and grade 1 spondylolisthesis (2) Hypertension Current Visit: Yes Status: Chronic Qualifiers: Hypertension type: essential hypertension Qualified Code(s): I10 - Essential (primary) hypertension Plan to address problem: Continue antihypertensives and adjust medications (3) T2DM (type 2 diabetes mellitus) Current Visit: Yes Status: Chronic Qualifiers: 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 Pain is about 10 on a scale of 1-10. Patient went to [place] emergency room last night and was diagnosed with renal colic and discharged Toradol and Keflex. Patient continues to have severe pain which is 10 on a scale of 1-10 sharp in nature. Movement is exacerbating. Lying down flat is relieving. Work-up in the emergency room revealed multiple disc changes spondylolysis and grade 1 and spondylolisthesis and L4 compression fracture. Pain is 8/10 Neurosurgery evaluation appreciated LSO ordered For discharge tomorrow after physical therapy Blood glucose levels uncontrolled Insulin adjusted Objective - Constitutional Vitals: Vital Signs - 12hr 10/19/20 10/19/20 10/19/20 07:39 11:53 16:03 Temperature 98.3 F 98.1 F 98.1 F Pulse Rate 104 H 107 H 48 L Respiratory 16 16 16 Rate Blood Pressure 186/70 166/85 147/75 O2 Sat by Pulse 94 95 94 Oximetry General appearance: Present: no acute distress, well-nourished - EENT Eyes: PERRL, EOM intact ENT: hearing intact, clear oral mucosa Ears: bilateral: normal - Neck Neck: supple, normal ROM - Respiratory Respiratory effort: normal Respiratory: bilateral: CTA - Breasts Breasts: normal - Cardiovascular Heart rate: 75 Rhythm: regular Heart Sounds: Present: S1 & S2. Absent: gallop, rub Extremities: no ischemia, pulses intact, No edema, normal color, Full ROM - Gastrointestinal General gastrointestinal: Present: soft, non-tender, non-distended, normal bowel sounds Rectal Exam: deferred - Genitourinary Female genitourinary: normal - Integumentary Integumentary: clear, warm, dry - Musculoskeletal Musculoskeletal: 1, strength equal bilaterally - Neurologic Neurologic: moves all extremities - Psychiatric Psychiatric: memory intact, appropriate mood/affect, intact judgment & insight - Labs CBC & Chem 7: 10/16/20 10:21 10/16/20 10:21 Labs: Abnormal lab results 10/18/20 10/18/20 10/19/20 Range/Units 15:59 20:51 07:51 POC Glucose 128 H 191 H 199 H (70-105) mg/dL 10/19/20 10/19/20 Range/Units 12:09 16:01 POC Glucose 205 H 123 H (70-105) mg/dL HEART Score - HEART Score Age: > 65 Risk factors: 1-2 risk factors Troponin: < normal limit - Critical Actions Critical Actions: 0-3 pts:0.9-1.7%risk of adverse cardiac event.Candidate for discharge
[2020-10-20] MEDS: HYDROmorphone 1 MG/1 ML INJ IV PRN (00:49)
[2020-10-20] MEDS: SODIUM CHLORIDE 0.9% 1000 ML 1,000 ML IV SCH (05:50)
[2020-10-20] MEDS: oxyCODONE /ACETAMINOPHEN 5-325MG TAB PO PRN ×2 (06:01→12:26)
[2020-10-20] MEDS: hydrALAZINE 20 MG/1 ML INJ IV PRN (06:03)
[2020-10-20] MEDS: INSULIN LISPRO 100 UNIT/ML SUB-Q SCH ×2 (08:43→12:28)
[2020-10-20] MEDS: INSULIN NPH/REGULAR 70/30 INJ SUB-Q SCH (09:27)
[2020-10-20] MEDS: CAPSAICIN 0.075% CREAM 60 GM TP SCH (09:28)
--- NOTE | 2020-10-20 09:37 | Discharge Summary ---
Providers - Providers Date of Admission: 10/17/20 20:18 Date of discharge: 10/20/20 Attending physician: SHELLY COLON 10/17/20 07:09 Consult to Physician [CONS] Routine Comment: Consulting Provider: LEONELA MILLAN Physician Instructions: Reason For Exam: Lumbar radiculopathy 10/18/20 17:40 Consult to Physician [CONS] Routine Comment: Consulting Provider: LITZY FUENTES II Physician Instructions: Reason For Exam: Lumbar radiculopathy Primary care physician: [employer]MENT [employer]ER Hospitalization Condition: Serious Hospital course: Subjective Date of service: 10/19/20 Principal diagnosis: L4 fracture, lumbar radiculopathy Interval history: 75-year-old female with a history of hypertension and diabetes comes in for severe low back pain radiating to the right lower extremity. Pain is about 10 on a scale of 1-10. Patient went to [facility] emergency room last night and was diagnosed with renal colic and discharged Toradol and Keflex. Patient continues to have severe pain which is 10 on a scale of 1-10 sharp in nature. Movement is exacerbating. Lying down flat is relieving. Work-up in the emergency room revealed multiple disc changes spondylolysis and grade 1 and spondylolisthesis and L4 compression fracture. Pain is 8/10 Neurosurgery evaluation appreciated LSO ordered For discharge tomorrow after physical therapy Blood glucose levels uncontrolled Insulin adjusted Assessment and Plan - Patient Problems (1) Lumbar radiculopathy, acute Current Visit: Yes Status: Acute Plan to address problem: Pain management for now Neurosurgery consult appreciated Lumbar support supplied Surgery as outpatient for the L4 fracture and CVS spondylosis and grade 1 spondylolisthesis Pain management as outpatient (2) Hypertension Current Visit: Yes Status: Chronic Qualifiers: Hypertension type: essential hypertension Qualified Code(s): I10 - Essential (primary) hypertension Plan to address problem: Continue antihypertensives and adjust medications (3) T2DM (type 2 diabetes mellitus) Current Visit: Yes Status: Chronic Qualifiers: 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 Follow- up with PCP as outpatient. 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 insulin use status (4) DVT prophylaxis Status: Acute Core Measure Documentation - Palliative Care Palliative Care/ Comfort Measures: Not Applicable - Core Measures Any of the following diagnoses?: none Exam - Constitutional Vitals: Temp Pulse Resp BP Pulse Ox 97.7 F 98 H 18 123/70 97 10/20/20 08:23 10/20/20 08:23 10/20/20 08:23 10/20/20 08:23 10/20/20 08:23 General appearance: Present: no acute distress, well-nourished - EENT Eyes: Present: PERRL ENT: hearing intact, clear oral mucosa - Neck Neck: Present: supple, normal ROM - Respiratory Respiratory effort: normal Respiratory: bilateral: CTA - Cardiovascular Heart Sounds: Present: S1 & S2. Absent: rub, click - Extremities Extremities: pulses symmetrical, No edema Extremity abnormal: other (Lower back tenderness present. SLR positive on right lower extremity.) Peripheral Pulses: within normal limits - Abdominal General gastrointestinal: Present: soft, non-tender, non-distended, normal bowel sounds Female genitourinary: Present: normal - Integumentary Integumentary: Present: clear, warm, dry - Musculoskeletal Musculoskeletal: gait normal, strength equal bilaterally - Psychiatric Psychiatric: appropriate mood/affect, intact judgment & insight - Neurologic Neurologic: CNII-XII intact, moves all extremities Plan Activity: no restrictions, fall precautions Weight Bearing Status: Weight Bear as Tolerated Diet: diabetic Durable Medical Equipment Needed Upon Discharge: Walker-Rolling, Bedside Commode Follow up with: ALEISHA GATES MD [Primary Care Provider] - 3-5 Days LITZY FUENTES II, MD [Staff Physician] - 7 Days
[2020-10-20] MEDS: FAMOTIDINE 20 MG TAB PO SCH (11:26)
[2020-10-20] MEDS: hydroCHLOROthiazide 25 MG TAB PO SCH (11:26)
[2020-10-20] MEDS: amLODIPine 10 MG TAB PO SCH (11:26)
[2020-10-20] MEDS: LISINOPRIL 40 MG TAB PO SCH (11:27)
[2020-10-20] MEDS: HEPARIN 5,000 UNIT/1 ML VIAL SUB-Q SCH (11:30)
[2020-10-20 12:52] VITALS: BP 127/73
== END 2020-10-20 18:00 | disposition home health service (06) | DRG 552 ==
LOC: ED 09:35 → 3B-SURG 12:55 → OBSVTOIN 10-17 20:18 → 3B 10-17 23:27
PROVIDERS: ADMIT Internal Medicine; ATTEND Internal Medicine
DX: M54.16 Radiculopathy, lumbar region (principal); M48.56XA Collapsed vertebra, not elsewhere classified, lumbar region, initial encounter for fracture; M54.9 Dorsalgia, unspecified; I10 Essential (primary) hypertension; E11.9 Type 2 diabetes mellitus without complications; M47.896 Other spondylosis, lumbar region; Z79.899 Other long term (current) drug therapy
CPT/HCPCS: 36415; 72131; 72158; 74177; 80053; 81001; 82962; 85025; 96374; 96375; G0378; A9270-GY; A9575; J0360; J1170; J1644; J1815; J2270; J2405; J7030; Q9967